=== PATIENT | female | born 1970 | race Hispanic/Latino ===

== ENCOUNTER 2020-12-09 07:55 | Emergency (ER) | payer OTHER ==
[~2020-12-09] VITALS: Ht 162.6 cm; Wt 90.7 kg
[2020-12-09 07:56] VITALS: BP 131/87
[2020-12-09] MEDS ORDERED: ONDANSETRON 4MG INJ IVP SCH (08:15)
[2020-12-09] MEDS ORDERED: MORPHINE 4 MG SYG IVP SCH (08:15)
[2020-12-09 08:18] LABS: BASOPHILS % (AUTO) 0.4 % (0.0-5.0); EOSINOPHILS % (AUTO) 2.3 % (0.0-8.0); HEMATOCRIT 39.8 % (36-48); LYMPHOCYTES % (AUTO) 38.4 % (21.0-51.0); MEAN CORPUSCULAR HEMOGLOBIN 31.7 pg (27.0-33.0); MEAN CORPUSCULAR HGB CONC 32.7 g/dL (32.0-36.0); MEAN CORPUSCULAR VOLUME 97.1 fL (79-99); MONOCYTES % (AUTO) 7.4 % (3.0-13.0); NEUTROPHILS % (AUTO) 51.2 % (40.0-77.0); PLATELET COUNT (AUTO) 261 K/uL (130-400); RED CELL DISTRIBUTION WIDTH 13.7 % (11.0-15.5)
[2020-12-09 08:34] LABS: APPEARANCE,URINE Cloudy (CLEAR); BILIRUBIN,URINE Negative (NEGATIVE); COLOR,URINE Yellow (YELLOW); GLUCOSE, URINE (UA) Negative (NEGATIVE); KETONES,URINE Negative (NEGATIVE); LEUKOCYTE ESTERASE ,URINE Negative (NEGATIVE); NITRATE,URINE Negative (NEGATIVE); OCCULT BLOOD,URINE Negative (NEGATIVE); PROTEIN,URINE Negative (NEGATIVE)
[2020-12-09 08:47] LABS: ALBUMIN 3.6 g/dL (3.5-5.0); BILIRUBIN,TOTAL 0.3 mg/dL (0.2-1.0); POTASSIUM 3.9 mmol/L (3.5-5.1)
[2020-12-09 08:53] LABS: BACTERIA,URINE Few /HPF (None Seen); RBC,URINE 0-1 /HPF (0-1); WBC,URINE 0-1 /HPF (0-1)
[2020-12-09 09:20] VITALS: BP 138/86
[2020-12-09] MEDS ORDERED: MORPHINE 4 MG SYG IV SCH (10:15)
[2020-12-09 12:15] VITALS: BP 117/72
[2020-12-12] MEDS ORDERED: ACET1TAB25 PO (10:51)
[2020-12-12] MEDS ORDERED: AMOX-429 PO (10:51)
[2020-12-12] MEDS ORDERED: ONDA4TAB4 PO (10:51)
[2020-12-12] MEDS ORDERED: POLY17PO4 PO (10:51)
== END 2020-12-09 12:18 | disposition home or self-care (01) ==
LOC: EDH 07:55
DX: K80.50 Calculus of bile duct without cholangitis or cholecystitis without obstruction (principal); R11.2 Nausea with vomiting, unspecified; E66.9 Obesity, unspecified; Z79.899 Other long term (current) drug therapy
CPT/HCPCS: 36415; 76705; 80053; 81001; 83690; 84484; 85025; 96374; 96375; 99284; J2270; J2405